=== PATIENT | male | born 1950 | race Caucasian/White ===

== ENCOUNTER 2016-12-01 18:35 | Emergency (ER) | payer BC ==
[2016-12-01] MEDS ORDERED: Sodium Chloride 0.9% 10 ML Syringe FLUSH PRN (18:47)
[2016-12-01] MEDS ORDERED: Nitroglycerin 0.4 MG Tab.SL SL PRN (18:52)
[2016-12-01 19:29] VITALS: BP 148/62
[2016-12-01] MEDS ORDERED: Heparin Sodium/D5W 25,000 UNITS/500 ML BAG IV SCH (21:00)
[2016-12-01] MEDS ORDERED: Heparin Sodium 5,000 Units/ML Vial ONE (21:05)
[2016-12-01] MEDS ORDERED: Heparin Sodium 5,000 Units/ML Vial IVPUSH ONE (21:06)
--- NOTE | 2016-12-01 21:32 | EDM.PDOC ---
ED HPI GENERAL MEDICAL PROBLEM - General Chief Complaint: Chest Pain Stated Complaint: CHEST TIGHTNESS Time Seen by Provider: 12/01/16 18:45 Source of Information: Reports: Patient, Family History Limitations: Reports: No Limitations - History of Present Illness INITIAL COMMENTS - FREE TEXT/NARRATIVE: Patient is a 66 year old man who 3 days ago had a heart catheterization that showed severe enough disease that he has been scheduled to have CABG surgery next week on 12-08-[address] Valenzuela at [facility]. Tonight 30 minutes before coming to the Emergency Department Mr. Tapia went for a short walk and developed substernal chest pressure. He called [facility] and was told to come to the ED for evaluation. He was given one nitro shortly after getting her and the pressure went away. Onset: Today, Sudden Onset Date: 12/01/16 Onset Time: 18:00 Duration: Minutes: (30), Constant Location: Reports: Chest (Substernal chest pressure.) Quality: Reports: Pressure Severity: Mild Improves with: Reports: None Worsens with: Reports: Movement Context: Reports: Other (CAD with upcoming CABG scheduled in one week.) Associated Symptoms: Reports: No Other Symptoms Chest Pain Score (Numeric/FACES): 1 - Related Data Allergies Allergy/AdvReac Type Severity Reaction Status Date / Time Penicillins Allergy Cannot Verified 12/01/16 18:48 Remember Home Meds: Home Meds Albuterol Sulfate [Albuterol Sulfate HFA] 2 puff IH Q4HR PRN 06/29/14 [History] Aspirin [Adult Low Dose Aspirin EC] 81 mg PO DAILY 06/29/14 [History] Cider Vinegar [Apple Cider Vinegar] 300 mg PO DAILY 06/29/14 [History] Cinnamon Bark [Cinnamon] 500 mg PO BID 06/29/14 [History] Glimepiride [Amaryl] 1 mg PO WITHBREAKFAST 06/29/14 [History] Hydrochlorothiazide 25 mg PO DAILY 06/29/14 [History] Multivitamin with Minerals [Multiple Vitamin] 1 tab PO DAILY 06/29/14 [History] Oat Bra 500 mg PO DAILY 06/29/14 [History] Simvastatin [Zocor] 20 mg PO BEDTIME 06/29/14 [History] amLODIPine/Benazepril [Lotrel 10-20 MG] 1 cap PO DAILY 06/29/14 [History] metFORMIN [Glucophage] 1,000 mg PO BIDMEALS 06/29/14 [History] Glimepiride [Amaryl] 2 mg PO DAILY 12/01/16 [History] Metoprolol Tartrate 12.5 mg PO BID 12/01/16 [History] Nitroglycerin [Nitrostat] 0.4 mg SL ASDIRECTED PRN 12/01/16 [History] Past Medical History Cardiovascular History: Reports: Hypertension Other Cardiovascular History: Pt had angiogram on 11/28/16, plan for open heart surgery on 12/08/16 Respiratory History: Reports: Asthma Social & Family History - Family History Family Medical History: Noncontributory - Tobacco Use Smoking Status *Q: Never Smoker Years of Tobacco use: 40 - Alcohol Use Days Per Week of Alcohol Use: 0 - Recreational Drug Use Recreational Drug Use: No ED ROS GENERAL - Review of Systems Review Of Systems: See Below Constitutional: Reports: No Symptoms HEENT: Reports: No Symptoms Respiratory: Reports: No Symptoms Cardiovascular: Reports: Chest Pain Endocrine: Reports: No Symptoms GI/Abdominal: Reports: No Symptoms : Reports: No Symptoms Musculoskeletal: Reports: No Symptoms Skin: Reports: No Symptoms Neurological: Reports: No Symptoms Psychiatric: Reports: No Symptoms Hematologic/Lymphatic: Reports: No Symptoms Immunologic: Reports: No Symptoms ED EXAM, GENERAL - Physical Exam Exam: See Below Exam Limited By: No Limitations General Appearance: Alert, WD/WN, No Apparent Distress Eye Exam: Bilateral Eye: EOMI, Normal Fundi, Normal Inspection, PERRL Ears: Normal External Exam, Normal Canal, Hearing Grossly Normal, Normal TMs Ear Exam: Bilateral Ear: Auricle Normal, Canal Normal, TM normal Nose: Normal Inspection, Normal Mucosa, No Blood Throat/Mouth: Normal Inspection, Normal Lips, Normal Teeth, Normal Gums, Normal Oropharynx, Normal Voice, No Airway Compromise Head: Atraumatic, Normocephalic Neck: Normal Inspection, Supple, Non-Tender, Full Range of Motion Respiratory/Chest: No Respiratory Distress, Lungs Clear, Normal Breath Sounds, No Accessory Muscle Use, Chest Non-Tender Cardiovascular: Normal Peripheral Pulses Peripheral Pulses: 3+: Posterior Tibial (L), Posterior Tibial (R), Dorsalis Pedis (L), Dorsalis Pedis (R) GI/Abdominal: Normal Bowel Sounds, Soft, Non-Tender, No Organomegaly, No Distention, No Abnormal Bruit, No Mass Back Exam: Normal Inspection, Full Range of Motion, NT Extremities: Normal Inspection, Normal Range of Motion, Non-Tender, Normal Capillary Refill, No Pedal Edema Neurological: Alert, Oriented, CN II-XII Intact, Normal Cognition, Normal Gait, Normal Reflexes, No Motor/Sensory Deficits Psychiatric: Normal Affect, Normal Mood Skin Exam: Warm, Dry, Intact, Normal Color, No Rash Lymphatic: No Adenopathy EKG INTERPRETATION EKG Date: 12/01/16 Rhythm: NSR Orange: Normal P-Wave: Present QRS: Other (Abnormal R wave progression.) ST-T: Normal QT: Normal Comparison: NA - No Prior EKG Course - Vital Signs Text/Narrative:: Uneventful ED course. He had one nitro and he was pain free. His EKG and CXR was normal as was the Troponin. He did have elevated glucose since he has not been on his Metformin. Discussed case with [facility] who wanted him put on a Heparin drip and they will rule him out and have him see cardiothoracic surgery tomorrow. He will go by [facility] with a Heparin Drip. Dr. Ortega is the accepting physician. Last Recorded V/S: Last Vital Signs Temp 36.8 C 12/01/16 18:40 Pulse 66 12/01/16 18:40 Resp 18 12/01/16 18:40 BP 148/62 H 12/01/16 18:55 Pulse Ox 98 12/01/16 18:40 - Orders/Labs/Meds Orders: Active Orders 24 hr Category Date Time Status EKG Documentation Completion [RC] ASDIRECTED Care 12/01/16 18:45 Active CXR [Chest 1V Frontal] [CR] Stat Exams 12/01/16 18:45 Taken INR,PT,PROTHROMBIN TIME [COAG] Stat Lab 12/01/16 21:24 Ordered PTT,PARTIAL THROMBOPLSTIN TIME [COAG] Stat Lab 12/01/16 21:15 Ordered Heparin Sodium/D5W [Heparin 25,000 Units in D5W 500 ML] Med 12/01/16 21:00 Active 25,000 units in 500 ml IV TITRATE Nitroglycerin [Nitrostat] Med 12/01/16 18:52 Active 0.4 mg SL Q5M PRN Sodium Chloride 0.9% [Saline Flush] Med 12/01/16 18:47 Active 10 ml FLUSH ASDIRECTED PRN Saline Lock Insert [OM.PC] Routine Oth 12/01/16 18:47 Ordered EKG 12 Lead [EK] Routine Ther 12/01/16 18:44 Ordered Medication Orders Heparin Sodium/Dextrose (Heparin 25,000 Units In D5w 500 Ml) 25,000 units in 500 mls @ 0 mls/hr IV TITRATE ADE; 12 UNITS/KG/HR PRN Reason: Protocol Last Admin: 12/01/16 21:13 Dose: 12.06 units/kg/hr, 22 mls/hr Nitroglycerin (Nitrostat) 0.4 mg SL Q5M PRN PRN Reason: Chest Pain Last Admin: 12/01/16 18:50 Dose: 0.4 mg Sodium Chloride (Saline Flush) 10 ml FLUSH ASDIRECTED PRN PRN Reason: Keep Vein Open Labs: Laboratory Tests 12/01/16 12/01/16 12/01/16 Range/Units 18:50 18:50 18:50 WBC 7.7 (4.5-12.0) X10-3/uL RBC 5.65 (4.30-5.75) x10(6)uL Hgb 15.2 (11.5-15.5) g/dL Hct 46.4 (30.0-51.3) % MCV 82.1 (80-96) fL MCH 26.9 L (27.7-33.6) pg MCHC 32.8 (32.2-35.4) g/dL RDW 12.9 (11.5-15.5) % Plt Count 187 (125-369) X10(3)uL MPV 9.2 (7.4-10.4) fL Neut % (Auto) 59.0 (46-82) % Lymph % (Auto) 24.9 (13-37) % [place] % (Auto) 13.2 H (4-12) % Eos % (Auto) 2 (1.0-5.0) % Baso % (Auto) 1 (0-2) % Neut # (Auto) 4.6 (1.6-8.3) # Lymph # (Auto) 1.9 (0.6-5.0) # [place] # (Auto) 1.0 (0.0-1.3) # Eos # (Auto) 0.2 (0.0-0.8) # Baso # (Auto) 0.0 (0.0-0.2) # Sodium 131 L (135-145) mmol/L Potassium 3.8 (3.5-5.3) mmol/L Chloride 98 L (100-110) mmol/L Carbon Dioxide 24 (23-29) mmol/L BUN 25 H (8-23) mg/dL Creatinine 1.1 (0.6-1.3) mg/dL Est Cr Clr Drug Dosing TNP Estimated GFR (MDRD) > 60 (>60) BUN/Creatinine Ratio 22.7 H (9-20) Glucose 332 H (80-116) mg/dL Calcium 9.1 (8.6-10.2) mg/dL Total Bilirubin 0.5 (0.1-1.3) mg/dL AST 33 H (5-27) IU/L ALT 56 H (14-26) IU/L Alkaline Phosphatase 79 (56-112) IU/L Troponin I < 0.01 L (0.02-0.06) NG/ML Total Protein 7.4 (6.0-8.0) g/dL Albumin 4.2 (3.2-4.6) g/dL Globulin 3.2 g/dL Albumin/Globulin Ratio 1.3 Meds: Medications Generic Name Dose Route Start Last Admin Trade Name Freq PRN Reason Stop Dose Admin Heparin Sodium/Dextrose 25,000 units in 500 mls @ 0 mls/hr 12/01/16 21:00 21:13 Heparin 25,000 Units In D5w 500 Ml IV 12.06 units/kg/hr TITRATE ADE 22 mls/hr Protocol Administration 12 UNITS/KG/HR Nitroglycerin 0.4 mg 12/01/16 18:52 12/01/16 18:50 Nitrostat SL 0.4 mg Q5M PRN Administration Chest Pain Sodium Chloride 10 ml 12/01/16 18:47 Saline Flush FLUSH ASDIRECTED PRN Keep Vein Open Discontinued Medications Generic Name Dose Route Start Last Admin Trade Name Freq PRN Reason Stop Dose Admin Heparin Sodium (Porcine) 5,000 units 12/01/16 21:06 12/01/16 21:11 Heparin Sodium IVPUSH 12/01/16 21:07 5,000 units ONETIME ONE Administration Heparin Sodium (Porcine) Confirm 12/01/16 21:05 12/01/16 21:16 Heparin Sodium Administered 12/01/16 21:06 Not Given Dose 5,000 units .ROUTE .STK-MED ONE Departure - Departure Time of Disposition: 21:40 Disposition: DC/[facility] to [facility] 02 Reason for Transfer *Q: Other (Needs to have ND ruled out) Condition: Good Clinical Impression: Angina at rest Referrals: Henry Shah MD [Primary Care Provider] - - My Orders Last 24 Hours: My Active Orders 12/01/16 18:44 EKG 12 Lead [EK] Routine 12/01/16 18:45 EKG Documentation Completion [RC] ASDIRECTED CXR [Chest 1V Frontal] [CR] Stat 12/01/16 18:47 Sodium Chloride 0.9% [Saline Flush] 10 ml FLUSH ASDIRECTED PRN Saline Lock Insert [OM.PC] Routine 12/01/16 18:52 Nitroglycerin [Nitrostat] 0.4 mg SL Q5M PRN 12/01/16 21:00 Heparin Sodium/D5W [Heparin 25,000 Units in D5W 500 ML] 25,000 units in 500 ml IV TITRATE 12/01/16 21:15 PTT,PARTIAL THROMBOPLSTIN TIME [COAG] Stat 12/01/16 21:24 INR,PT,PROTHROMBIN TIME [COAG] Stat - Assessment/Plan Last 24 Hours: My Active Orders 12/01/16 18:44 EKG 12 Lead [EK] Routine 12/01/16 18:45 EKG Documentation Completion [RC] ASDIRECTED CXR [Chest 1V Frontal] [CR] Stat 12/01/16 18:47 Sodium Chloride 0.9% [Saline Flush] 10 ml FLUSH ASDIRECTED PRN Saline Lock Insert [OM.PC] Routine 12/01/16 18:52 Nitroglycerin [Nitrostat] 0.4 mg SL Q5M PRN 12/01/16 21:00 Heparin Sodium/D5W [Heparin 25,000 Units in D5W 500 ML] 25,000 units in 500 ml IV TITRATE 12/01/16 21:15 PTT,PARTIAL THROMBOPLSTIN TIME [COAG] Stat 12/01/16 21:24 INR,PT,PROTHROMBIN TIME [COAG] Stat
--- NOTE | 2016-12-04 13:29 | CR ---
INDICATION: Chest pain. CHEST: An AP upright view of the chest 12/01/2016 was compared with 11/22/2016 , exam from [facility]. The heart is normal in size and shape. Only minimal tortuosity of the aorta is noted. Overlying EKG leads are noted. A definite active infiltrate or effusion was not identified. Degenerative changes are noted in the spine. Somewhat flattened diaphragm leaf on the left suggests COPD along with hyperaeration. IMPRESSION: No acute process. MTDD
== END 2016-12-01 21:15 ==
LOC: FB.ED 18:38
DX: I20.9 Angina pectoris, unspecified (principal); I10 Essential (primary) hypertension; J45.909 Unspecified asthma, uncomplicated; Z79.82 Long term (current) use of aspirin; Z79.899 Other long term (current) drug therapy; Z88.0 Allergy status to penicillin
CPT/HCPCS: 36415; 71010; 80053; 84484; 85025; 85610; 85730; 93005; 99285; A9270; J1644

== ENCOUNTER 2017-03-03 00:36 | Emergency (ER) | payer BC ==
[2017-03-03] MEDS ORDERED: Ondansetron 4 MG/2 ML SDV IVPUSH ONE (01:03)
[2017-03-03] MEDS ORDERED: Sodium Chloride 0.9% 10 ML Syringe FLUSH PRN (01:04)
--- NOTE | 2017-03-03 01:17 | EDM.PDOC ---
ED HPI GENERAL MEDICAL PROBLEM - General Stated Complaint: NAUSEA,VOMITING,DIZZINES Time Seen by Provider: 03/03/17 00:36 Source of Information: Reports: Patient, Family History Limitations: Reports: No Limitations - History of Present Illness INITIAL COMMENTS - FREE TEXT/NARRATIVE: 66 y. o.w.m with multiple medical issues including CAD, IDDM came to the ed due to an episode of not "feeling well" and RLQ abd. pain. Pt had CABG (2 vessels) recent. Last BM 5 days ago. Pt came with his by PC. Pt did better as he arrived her in the ED. Pt c/o minor "fasciculations" left lower ant chest wall and R lower abd. pain. Pt felt some nausea. No trauma, no vomiting. No C/P no othr acute medical issues. Pt at at 6 pm (small meal). The discomfort started at 1 am today. BP 128/61 Temp (?, Please see nursing note) Pulse 78 RR 18 Pulse ox 96% on RA. Onset Date: 03/02/17 Onset Time: 23:00 Duration: Hour(s):, Intermittent Location: Reports: Abdomen (RLQ) - Related Data Allergies Allergy/AdvReac Type Severity Reaction Status Date / Time Penicillins Allergy Rash Verified 03/03/17 02:06 Home Meds: Home Meds Albuterol Sulfate [Albuterol Sulfate HFA] 2 puff IH Q4HR PRN 06/29/14 [History] Aspirin [Adult Low Dose Aspirin EC] 81 mg PO DAILY 06/29/14 [History] Cider Vinegar [Apple Cider Vinegar] 300 mg PO DAILY 06/29/14 [History] Cinnamon Bark [Cinnamon] 500 mg PO BID 06/29/14 [History] Glimepiride [Amaryl] 1 mg PO WITHBREAKFAST 06/29/14 [History] Multivitamin with Minerals [Multiple Vitamin] 1 tab PO DAILY 06/29/14 [History] Simvastatin [Zocor] 20 mg PO BEDTIME 06/29/14 [History] metFORMIN [Glucophage] 1,000 mg PO BIDMEALS 06/29/14 [History] Nitroglycerin [Nitrostat] 0.4 mg SL ASDIRECTED PRN 12/01/16 [History] Bisacodyl 10 mg RC DAILY PRN #3 supp.rect 03/03/17 [Rx] Carvedilol [Carvedilol] 6.25 mg PO DAILY 03/03/17 [History] Insulin Glarg,Human.Rec.Analog [Lantus Solostar] 34 units SQ BEDTIME 03/03/17 [ History] Magnesium Citrate 296 ml PO ONETIME PRN #1 solution 03/03/17 [Rx] SitaGLIPtin [Januvia] 50 mg PO DAILY 03/03/17 [History] Past Medical History Cardiovascular History: Reports: Hypertension Other Cardiovascular History: Pt had angiogram on 11/28/16, plan for open heart surgery on 12/08/16 Respiratory History: Reports: Asthma Social & Family History - Family History Family Medical History: Noncontributory - Tobacco Use Smoking Status *Q: Never Smoker Years of Tobacco use: 40 - Alcohol Use Days Per Week of Alcohol Use: 0 - Recreational Drug Use Recreational Drug Use: No ED ROS GENERAL - Review of Systems Review Of Systems: See Below Constitutional: Reports: No Symptoms HEENT: Reports: No Symptoms Respiratory: Reports: No Symptoms Cardiovascular: Reports: No Symptoms Endocrine: Reports: No Symptoms GI/Abdominal: Reports: Abdominal Pain, Constipation : Reports: No Symptoms Musculoskeletal: Reports: No Symptoms Skin: Reports: No Symptoms Neurological: Reports: No Symptoms Psychiatric: Reports: No Symptoms Hematologic/Lymphatic: Reports: No Symptoms Immunologic: Reports: No Symptoms ED EXAM, GI/ABD - Physical Exam Exam: See Below Exam Limited By: No Limitations General Appearance: Alert, WD/WN, Mild Distress Eyes: Bilateral: Normal Appearance Ears: Normal External Exam Nose: Normal Inspection Throat/Mouth: Normal Inspection Head: Atraumatic, Normocephalic Neck: Normal Inspection, Supple, Non-Tender, Full Range of Motion Respiratory/Chest: No Respiratory Distress, Lungs Clear, Normal Breath Sounds Cardiovascular: Normal Peripheral Pulses, Regular Rate, Rhythm, No Edema, No Gallop GI/Abdominal Exam: No Distention, No Abnormal Bruit, Tender (RLQ of abdomen), Abnormal Bowel Sounds (hypoactive) (Male) Exam: No Hernia Rectal (Males) Exam: Deferred Back Exam: Normal Inspection, Full Range of Motion Extremities: Normal Inspection, Normal Range of Motion, Non-Tender Neurological: Alert, Oriented, CN II-XII Intact, Normal Cognition, Normal Gait, No Motor/Sensory Deficits Psychiatric: Normal Affect, Normal Mood Skin Exam: Warm, Dry, Intact, Normal Color, No Rash Lymphatic: No Adenopathy EKG INTERPRETATION EKG Date: 03/03/17 Time: 01:20 Rhythm: NSR Rate (Beats/Min): 78 [place]: Normal P-Wave: Present QRS: Normal ST-T: Normal QT: Normal Comparison: NA - No Prior EKG Course - Vital Signs Text/Narrative:: 66 y. o.w.m with multiple medical issues including CAD, IDDM came to the ed due to an episode of not "feeling well" and RLQ abd. pain. Pt had CABG (2 vessels) recent. Last BM 5 days ago. Pt came with his by PC. Pt did better as he arrived her in the ED. Pt c/o minor "fasciculations" left lower ant chest wall and R lower abd. pain. Pt felt some nausea. No trauma, no vomiting. No C/P no othr acute medical issues. Pt at at 6 pm (small meal). The discomfort started at 1 am today. BP 128/61 Temp (?, Please see nursing note) Pulse 78 RR 18 Pulse ox 96% on RA. PE: WNWD WM NAD with RLQ abd. pain with palp, guarding, no rebound Imaging: CT abd. pelvis with Contrast: NAD, Constipation, official report is pending Labs: PTL 107 A1C 7.1 WBC 8.8. H/H nl Impression: Constipation, H/o GERD, low ptls, elevated HA1C Tx: Mg Citrate at home Reexam: Improved. Plan: D/C with instructions 9.21 am: of Pt called, Mg citrate did not work. Recommended Bisacodyl NH. Last Recorded V/S: Last Vital Signs Temp 36.1 C 03/03/17 00:40 Pulse 84 03/03/17 03:00 Resp 17 03/03/17 03:00 BP 148/65 H 03/03/17 03:00 Pulse Ox 100 03/03/17 03:00 - Orders/Labs/Meds Labs: Laboratory Tests 03/03/17 03/03/17 03/03/17 Range/Units 01:15 01:15 01:15 WBC 8.8 (4.5-12.0) X10-3/uL RBC 5.68 (4.30-5.75) x10(6)uL Hgb 14.6 (11.5-15.5) g/dL Hct 46.3 (30.0-51.3) % MCV 81.5 (80-96) fL MCH 25.6 L (27.7-33.6) pg MCHC 31.4 L (32.2-35.4) g/dL RDW 14.3 (11.5-15.5) % Plt Count 107 L (125-369) X10(3)uL MPV 9.9 (7.4-10.4) fL Neut % (Auto) 65.3 (46-82) % Lymph % (Auto) 19.2 (13-37) % [place] % (Auto) 12.1 H (4-12) % Eos % (Auto) 3 (1.0-5.0) % Baso % (Auto) 1 (0-2) % Neut # (Auto) 5.7 (1.6-8.3) # Lymph # (Auto) 1.7 (0.6-5.0) # [place] # (Auto) 1.1 (0.0-1.3) # Eos # (Auto) 0.2 (0.0-0.8) # Baso # (Auto) 0.1 (0.0-0.2) # Sodium 138 (135-145) mmol/L Potassium 4.0 (3.5-5.3) mmol/L Chloride 101 (100-110) mmol/L Carbon Dioxide 25 (21-32) mmol/L BUN 24 H (7-18) mg/dL Creatinine 1.0 (0.70-1.30) mg/dL Est Cr Clr Drug Dosing TNP Estimated GFR (MDRD) > 60 (>60) BUN/Creatinine Ratio 24.0 H (9-20) Glucose 138 H (80-116) mg/dL Hemoglobin A1c (4.5-6.2) % Calcium 9.5 (8.6-10.2) mg/dL Total Bilirubin 0.5 (0.1-1.3) mg/dL Direct Bilirubin 0.13 (0.10-0.20) mg/dL AST 24 (5-25) IU/L ALT 33 (12-36) U/L Alkaline Phosphatase 78 (56-112) IU/L Troponin I < 0.017 L (<0.017-0.056) ng/mL NT-Pro-B Natriuret Pep 33 (<=125) pg/mL Total Protein 6.9 (6.0-8.0) g/dL Albumin 3.7 (3.2-4.6) g/dL Amylase 106 (25-115) U/L Urine Color (YELLOW) Urine Appearance (CLEAR) Urine pH (5.0-6.5) Ur Specific [place] (1.010-1.025) Urine Protein (NEGATIVE) mg/dL Urine Glucose (UA) (NEGATIVE) mg/dL Urine Ketones (NEGATIVE) mg/dL Urine Occult Blood (NEGATIVE) Urine Nitrite (NEGATIVE) Urine Bilirubin (NEGATIVE) Urine Urobilinogen (NEGATIVE) mg/dL Ur Leukocyte Esterase (NEGATIVE) Urine RBC (0) Urine WBC (0) Ur Squamous Epith Cells (NS,R,O) Urine Bacteria (NS) 03/03/17 03/03/17 Range/Units 01:15 02:01 WBC (4.5-12.0) X10-3/uL RBC (4.30-5.75) x10(6)uL Hgb (11.5-15.5) g/dL Hct (30.0-51.3) % MCV (80-96) fL MCH (27.7-33.6) pg MCHC (32.2-35.4) g/dL RDW (11.5-15.5) % Plt Count (125-369) X10(3)uL MPV (7.4-10.4) fL Neut % (Auto) (46-82) % Lymph % (Auto) (13-37) % [place] % (Auto) (4-12) % Eos % (Auto) (1.0-5.0) % Baso % (Auto) (0-2) % Neut # (Auto) (1.6-8.3) # Lymph # (Auto) (0.6-5.0) # [place] # (Auto) (0.0-1.3) # Eos # (Auto) (0.0-0.8) # Baso # (Auto) (0.0-0.2) # Sodium (135-145) mmol/L Potassium (3.5-5.3) mmol/L Chloride (100-110) mmol/L Carbon Dioxide (21-32) mmol/L BUN (7-18) mg/dL Creatinine (0.70-1.30) mg/dL Est Cr Clr Drug Dosing Estimated GFR (MDRD) (>60) BUN/Creatinine Ratio (9-20) Glucose (80-116) mg/dL Hemoglobin A1c 7.1 H (4.5-6.2) % Calcium (8.6-10.2) mg/dL Total Bilirubin (0.1-1.3) mg/dL Direct Bilirubin (0.10-0.20) mg/dL AST (5-25) IU/L ALT (12-36) U/L Alkaline Phosphatase (56-112) IU/L Troponin I (<0.017-0.056) ng/mL NT-Pro-B Natriuret Pep (<=125) pg/mL Total Protein (6.0-8.0) g/dL Albumin (3.2-4.6) g/dL Amylase (25-115) U/L Urine Color Yellow (YELLOW) Urine Appearance Clear (CLEAR) Urine pH 5.0 (5.0-6.5) Ur Specific [place] 1.015 (1.010-1.025) Urine Protein Negative (NEGATIVE) mg/dL Urine Glucose (UA) Normal (NEGATIVE) mg/dL Urine Ketones Negative (NEGATIVE) mg/dL Urine Occult Blood Negative (NEGATIVE) Urine Nitrite Negative (NEGATIVE) Urine Bilirubin Negative (NEGATIVE) Urine Urobilinogen Normal (NEGATIVE) mg/dL Ur Leukocyte Esterase Negative (NEGATIVE) Urine RBC 0-5 (0) Urine WBC Not seen (0) Ur Squamous Epith Cells Not seen (NS,R,O) Urine Bacteria Not seen (NS) Meds: Medications Discontinued Medications Generic Name Dose Route Start Last Admin Trade Name Freq PRN Reason Stop Dose Admin Diatrizoate Meglum/Diatrizoate Sod 30 ml 03/03/17 02:15 03/03/17 02:35 Gastrografin 37% PO 30 ml . DIRECTED ADE Administration Iopamidol 100 ml 03/03/17 02:01 03/03/17 02:35 Isovue-370 (76%) IV 03/03/17 02:02 100 ml . DIRECTED ONE Administration Ondansetron HCl 8 mg 03/03/17 01:03 03/03/17 01:20 Zofran IVPUSH 03/03/17 01:04 8 mg ONETIME ONE Administration Sodium Chloride 10 ml 03/03/17 01:04 03/03/17 01:20 Saline Flush FLUSH 10 ml ASDIRECTED PRN Administration Keep Vein Open Departure - Departure Time of Disposition: 03:35 Disposition: Home, Self-Care 01 Condition: Good Clinical Impression: Reflux esophagitis Constipation Qualifiers: Constipation type: slow transit constipation Qualified Code(s): K59.01 - Slow transit constipation - Discharge Information Prescriptions: Bisacodyl 10 mg RC DAILY PRN #3 supp.rect PRN Reason: Constipation Magnesium Citrate 296 ml PO ONETIME PRN #1 solution PRN Reason: for acute constipation Instructions: Nausea, Adult Referrals: James Mckeon MD [Primary Care Provider] - Forms: ED Department Discharge Additional Instructions: Please increase water intake, Mg Citrate in am, please take Oatmeal daily, Milk of Magnesium as needed, please f/u, come back if your symptoms get worse acutely. Care Plan Goals: Do not take your Metformin for 48 hours.
[2017-03-03] MEDS ORDERED: Iopamidol 755 Mg/ML 100 ML Bottle IV ONE (02:01)
[2017-03-03] MEDS ORDERED: Diatrizoate Meglumine/Diatrizoate Sodium 37% 30 ML Bottle PO SCH (02:15)
[2017-03-03 03:47] VITALS: BP 148/65
== END 2017-03-03 03:40 | disposition home or self-care (01) ==
LOC: FB.ED 00:36
DX: K21.0 Gastro-esophageal reflux disease with esophagitis (principal); K59.01 Slow transit constipation; I10 Essential (primary) hypertension; J45.909 Unspecified asthma, uncomplicated; Z88.0 Allergy status to penicillin; Z79.899 Other long term (current) drug therapy; Z79.82 Long term (current) use of aspirin
CPT/HCPCS: 36415; 74177; 80048; 80076; 81001; 82150; 83036; 83880; 84484; 85025; 93005; 96374; 99284; A9270; J2405; J7050; Q9967

== ENCOUNTER 2019-10-23 07:57 | Day surgery (SDC) | payer MEDICARE, BC ==
[2019-10-23] MEDS ORDERED: Propofol 200 MG/20 ML SDV IV ONE (07:58)
[2019-10-23] MEDS ORDERED: Sodium Chloride 0.9% 10 ML Syringe FLUSH PRN (08:00)
[2019-10-23] MEDS ORDERED: Lactated Ringers 1,000 ML IV SCH (08:00)
--- NOTE | 2019-10-23 10:11 | PCM.OPNOTE ---
- General Post-Op/Procedure Note Date of Surgery/Procedure: 10/23/19 Operative Procedure(s): c scope with biopsy Findings: ascending colon polyp x2 transverse colon polyp descending colon polyp Pre Op Diagnosis: personal hx of colon polyp Post-Op Diagnosis: ascending colon polyp x2. transverse colon polyp. descending colon polyp Anesthesia Technique: MAC Primary Surgeon: Nestor Gonzalez Anesthesia Provider: Ladi Robert Pathology: ascending colon polyp x2 transverse colon polyp descending colon polyp Complications: None Condition: Good Free Text/Narrative:: see dictation
[2019-10-23 10:51] VITALS: BP 118/72; PULSE 65
--- NOTE | 2019-10-23 12:13 | OR ---
DATE OF OPERATION: 10/23/2019 SURGEON: Nestor Gonzalez MD PROCEDURE PERFORMED: Colonoscopy with cold forceps biopsy. PREOPERATIVE DIAGNOSIS: Personal history of colon polyps. POSTOPERATIVE DIAGNOSES: Hyperplastic polyp in ascending colon x2, transverse colon polyp, and descending colon polyp. INDICATIONS FOR PROCEDURE: This is a 69-year-old white male who presents for his 5-year followup scope. He has a personal history of colon polyps. DESCRIPTION OF OPERATION: After an excellent IV sedation was administered, digital rectal exam was performed. No marked abnormality was noted. The flexible colonoscope was inserted and advanced to the cecum. Prep was excellent. The following findings were noted: Ascending colon within just above the cecum, 2 small hyperplastic-appearing lesions, both approximately 2 mm in size, biopsied and sent for permanent, otherwise unremarkable. Transverse colon, small flat adenomatous-appearing lesion, approximately 4 mm in size, biopsied and submitted in 1 container. This was obliterated with cold biopsy forceps. Descending colon, a small polyp, roughly 2 mm in size, biopsied and sent for permanent. Sigmoid, unremarkable. Rectum and anus, unremarkable. Photos were taken of all lesions. The patient tolerated the procedure well, was taken to Recovery. Results will be sent via letter. /[id number] /[id number]
== END 2019-10-23 11:08 | disposition home or self-care (01) ==
LOC: FB.SDS 07:57
PROVIDERS: ATTEND Surgery
DX: Z12.11 Encounter for screening for malignant neoplasm of colon (principal); D12.2 Benign neoplasm of ascending colon; D12.3 Benign neoplasm of transverse colon; D12.4 Benign neoplasm of descending colon; I10 Essential (primary) hypertension; E11.69 Type 2 diabetes mellitus with other specified complication; I25.10 Atherosclerotic heart disease of native coronary artery without angina pectoris; J45.909 Unspecified asthma, uncomplicated; E78.2 Mixed hyperlipidemia; Z79.899 Other long term (current) drug therapy; Z86.010 Personal history of colon polyps; Z88.0 Allergy status to penicillin; Z79.4 Long term (current) use of insulin
CPT/HCPCS: 00811; 45380; 82962; 88305; J2704; J7120

== ENCOUNTER 2023-02-27 07:39 | Day surgery (SDC) | payer MEDICARE, BC ==
[2023-02-27] MEDS ORDERED: Midazolam 1 MG/ML 2 ML SDV IV ONE (07:40)
[2023-02-27] MEDS ORDERED: fentaNYL 100 MCG/2 ML SDV IV ONE (07:40)
[2023-02-27] MEDS ORDERED: Propofol 200 MG/20 ML SDV IV ONE (07:40)
[2023-02-27] MEDS ORDERED: Sodium Chloride 0.9% 10 ML Syringe FLUSH PRN (07:45)
[2023-02-27] MEDS ORDERED: Lactated Ringers 1,000 ML IV SCH (07:45)
[2023-02-27] MEDS ORDERED: Simethicone Drops 40 MG/0.6 ML 30 ML Bottle ONE (08:01)
[2023-02-27 08:07] VITALS: BP 130/70; PULSE 70
== END 2023-02-27 10:28 | disposition home or self-care (01) ==
LOC: FB.SDS 07:39
PROVIDERS: ATTEND Surgery
DX: Z12.11 Encounter for screening for malignant neoplasm of colon (principal); D12.6 Benign neoplasm of colon, unspecified; K63.89 Other specified diseases of intestine; K21.9 Gastro-esophageal reflux disease without esophagitis; E11.9 Type 2 diabetes mellitus without complications; I10 Essential (primary) hypertension; J45.909 Unspecified asthma, uncomplicated; E78.5 Hyperlipidemia, unspecified; E66.9 Obesity, unspecified; Z68.28 Body mass index [BMI] 28.0-28.9, adult; Z87.891 Personal history of nicotine dependence; Z79.4 Long term (current) use of insulin; Z79.82 Long term (current) use of aspirin; Z79.899 Other long term (current) drug therapy; Z88.0 Allergy status to penicillin; Z91.018 Allergy to other foods
CPT/HCPCS: 00811; 88305; A9270-GY; J2250; J2704; J3010; J7120

== ENCOUNTER 2025-01-07 15:42 | Emergency (ER) | payer MEDICARE, BC ==
[2025-01-07] MEDS ORDERED: Sodium Chloride 0.9% 10 ML Syringe FLUSH PRN (16:07)
[2025-01-07 16:17] LABS: BASOPHILS ABSOLUTE AUTO 0.0 x10-3/uL (0.0-0.3); BASOPHILS PERCENT AUTO 0.6 % (0.3-3.8); EOSINOPHILS ABSOLUTE AUTO 0.3 x10-3/uL (0.0-0.6); EOSINOPHILS PERCENT AUTO 3.6 % (0.1-6.8); LYMPHOCYTES ABSOLUTE AUTO 1.4 x10-3/uL (0.5-4.5); LYMPHOCYTES PERCENT AUTO 16.9 % (15.8-45.3); MEAN PLATELET VOLUME 9.2 fL (6.7-11.0); MONOCYTES ABSOLUTE AUTO 1.1 x10-3/uL (0.0-1.2); MONOCYTES PERCENT AUTO 13.1 % (5.5-15.2); NEUTROPHILS ABSOLUTE AUTO 5.3 x10-3/uL (1.7-6.9); NEUTROPHILS PERCENT AUTO 65.8 % (40.3-71.8); PLATELET COUNT,PLT 195 x10(3)uL (117-477); RED BLOOD CELL COUNT 5.58 x10(6)uL (3.90-5.90); RED CELL DISTRIBUTION WIDTH 14.2 % (12.4-15.0); WHITE BLOOD CELL COUNT,WBC 8.1 x10-3/uL (3.2-10.1)
[2025-01-07 16:23] LABS: BLOOD UREA NITROGEN,BUN 19 mg/dL (7-18); CARBON DIOXIDE,CO2 27 mmol/L (21-32); CHLORIDE,CL 99 mmol/L (100-110); CREATININE 1.0 mg/dL (0.70-1.30); EST CRCL DRUG DOSING (CG) 71.12 mL/min; ESTIMATED GFR 80 mL/min (>60); GLUCOSE RANDOM 126 mg/dL (80-116); POTASSIUM,K 4.2 mmol/L (3.5-5.3); SODIUM,NA 137 mmol/L (135-145)
[2025-01-07 16:29] LABS: A/G RATIO 1.1; ALANINE AMINOTRANSFERASE,ALT 67 U/L (12-36); ASPARTATE AMNIOTRANSFERASE,AST 38 IU/L (5-25); BILIRUBIN TOTAL 0.7 mg/dL (0.1-1.3); PROTEIN TOTAL,TP 8.0 g/dL (6.0-8.0)
[2025-01-07 16:35] LABS: LACTIC ACID 2.2 mmol/L (0.4-2.0); PRO B-TYPE NATRIUR PEPT,BNPPRO 38 pg/mL (<=125)
[2025-01-07 18:39] VITALS: BP 149/75; PULSE 68
== END 2025-01-07 18:25 | disposition home or self-care (01) ==
LOC: FB.ED 15:42
DX: E86.0 Dehydration (principal); F41.9 Anxiety disorder, unspecified; I25.10 Atherosclerotic heart disease of native coronary artery without angina pectoris; I10 Essential (primary) hypertension; I25.2 Old myocardial infarction; E78.00 Pure hypercholesterolemia, unspecified; K21.9 Gastro-esophageal reflux disease without esophagitis; E11.9 Type 2 diabetes mellitus without complications; Z86.16 Personal history of COVID-19; Z79.84 Long term (current) use of oral hypoglycemic drugs; Z79.4 Long term (current) use of insulin; Z79.82 Long term (current) use of aspirin; Z88.0 Allergy status to penicillin; Z91.018 Allergy to other foods
CPT/HCPCS: 36415; 71045; 80053; 83605; 83690; 83735; 83880; 84484; 85025; 86140; 93005; 96360; 99285; J7030